=== PATIENT | female | born 1965 | race American Indian/Alaskan Native ===

== ENCOUNTER 2017-05-12 14:34 | Emergency (ER) | payer MEDICAID ==
[2017-05-12 14:43] VITALS: BP 148/65; PULSE 72; RESP 20; TEMP 99.3; O2SAT 98
--- NOTE | 2017-05-12 15:39 | ED PDOC ---
HPI: Female Pain Time Seen by Provider: 05/12/17 15:05 Chief Complaint (Nursing): Dizziness/Lightheaded Chief Complaint (Provider): Dizziness associated with vaginal bleeding History Per: Patient History/Exam Limitations: no limitations Current Symptoms Are (Timing): Still Present Associated Symptoms: denies: Chest Pain Additional Complaint(s): Titus Pizarro, a 52 year old female, with a past medical history of hypertension and anemia presents to the ED with dizziness associated with vaginal bleeding . The patient reports that her last menstrual period was 2 weeks ago and it was heavy. Patient states that she started bleeding again today but it was light. Denies chest pain, loss of consciousness. Abnormal Vaginal Bleeding: Yes Last Menstral Period: 2 weeks ago Past Medical History Reviewed: Historical Data, Nursing Documentation, Vital Signs Vital Signs: Last Vital Signs Temp 99.3 F 05/12/17 14:41 Pulse 72 05/12/17 14:41 Resp 20 05/12/17 14:41 BP 148/65 05/12/17 14:41 Pulse Ox 98 05/12/17 14:41 - Medical History PMH: Anemia (has needed transfusions), HTN Denies: Asthma, Chronic Kidney Disease - Surgical History Surgical History: (x3) - Family History Family History: States: Unknown Family Hx - Home Medications Home Medications: Ambulatory Orders Medication Instructions Recorded Carvedilol [Coreg] 6.25 mg PO BID #0 tab 02/20/16 Ferrous Sulfate [Feosol] 325 mg PO TID #0 tab 02/20/16 Ibuprofen [Motrin] 600 mg PO TID #30 tab 09/01/16 Ondansetron HCl [Zofran] 4 mg PO TID #60 ml 09/01/16 Oseltamivir [Tamiflu Cap] 75 mg PO BID #5 cap 09/01/16 Meclizine [Meclizine*] 25 mg PO Q8 #15 tab 05/12/17 - Allergies Allergies/Adverse Reactions: Allergies Allergy/AdvReac Type Severity Reaction Status Date / Time No Known Allergies Allergy Verified 03/03/16 17:26 Review of Systems Cardiovascular: Negative for: Chest Pain Genitourinary Female: Positive for: Vaginal Bleeding Neurological: Positive for: Dizziness Physical Exam - Reviewed Nursing Documentation Reviewed: Yes Vital Signs Reviewed: Yes - Physical Exam Appears: Positive for: Non-toxic, No Acute Distress Head Exam: Positive for: ATRAUMATIC, NORMAL INSPECTION, NORMOCEPHALIC Skin: Positive for: Normal Color, Warm, Dry. Negative for: Rash Eye Exam: Positive for: Normal appearance, EOMI, PERRL. Negative for: Nystagmus ENT: Positive for: Normal ENT Inspection Neck: Positive for: Normal, Painless ROM, Supple Cardiovascular/Chest: Positive for: Regular Rate, Rhythm, Chest Non Tender. Negative for: Tachycardia Respiratory: Positive for: Normal Breath Sounds. Negative for: Rales, Rhonchi, Wheezing, Respiratory Distress Gastrointestinal/Abdominal: Positive for: Normal Exam, Bowel Sounds, Soft. Negative for: Tenderness, Mass, Guarding, Rebound Back: Positive for: Normal Inspection. Negative for: L CVA Tenderness, R CVA Tenderness Neurologic/Psych: Positive for: Alert, Oriented, Gait. Negative for: Motor/ Sensory Deficits - Laboratory Results Result Diagrams: 05/12/17 16:06 05/12/17 16:15 - ECG O2 Sat by Pulse Oximetry: 98 (RA) Pulse Ox Interpretation: Normal Medical Decision Making Medical Decision Makin Initial Impression: 52 year old female presenting with dizziness associated with vaginal bleeding Initial Plan: * CMP * Upreg * Udip * CBC * Reevaluation Scribe~Attestation Documented by Aliyah Almazan acting as a scribe for Wade Doe MD Provider~Attestation All medical record entries made by the Scribe were at my direction and personally dictated by me. I have reviewed the chart and agree that the record accurately reflects my personal performance of the history, physical exam, medical decision making, and the department course for this patient. I have also personally directed, reviewed, and agree with the discharge instructions and disposition. Disposition - Clinical Impression Clinical Impression: Dizziness - Patient ED Disposition Is Patient to be Admitted: No Counseled Patient/Family Regarding: Studies Performed, Diagnosis, Need For Followup, Rx Given - Disposition Referrals: [facility] [Outside] Disposition: Routine/Home Disposition Time: 17:19 Condition: FAIR Prescriptions: Meclizine [Meclizine*] 25 mg PO Q8 #15 tab Instructions: Dizziness (ED) Forms: [facility] ([place]ian)
[2017-05-12 16:39] LABS: BASO % 0.2 % (0.0-2.0); EOS # 0.1 K/uL (0.0-0.7); EOS % 2.6 % (0.0-4.0); LYMPH # 1.2 K/uL (1.0-4.3); LYMPH % 24.6 % (20.0-40.0); MEAN CELL VOLUME 82.3 fl (81.0-99.0); MEAN CORPUSCULAR HEMOGLOBIN 25.4 pg (27.0-31.0); MEAN CORPUSCULAR HGB CONC 30.9 g/dL (33.0-37.0); MEAN PLATELET VOLUME 9.9 fl (7.2-11.7); MONO # 0.5 K/uL (0.0-0.8); MONO % 9.9 % (0.0-10.0); NEUT # 3.1 K/uL (1.8-7.0); NEUT % 62.7 % (50.0-75.0); NRBC % 0.1 % (0.0-0.0); RED CELL DISTRIBUTION WIDTH 20.2 % (11.5-14.5)
[2017-05-12 16:56] LABS: ALB/GLOB RATIO 1.2 (1.0-2.1); ALKALINE PHOSPHATASE 105 U/L (38-126); ALT/SGPT 24 U/L (9-52); AST/SGOT 18 U/L (14-36); BILIRUBIN,TOTAL 0.3 mg/dl (0.2-1.3); BLOOD UREA NITROGEN 13 mg/dl (7-17); CALCIUM 8.6 mg/dL (8.4-10.2); CARBON DIOXIDE 27 mmol/L (22-30); CHLORIDE 103 mmol/L (98-107); GFR AFRICAN-AMERICAN > 60; GLUCOSE,RANDOM 78 mg/dL (65-105); POTASSIUM 4.3 MMOL/L (3.6-5.0); SODIUM 142 mmol/l (132-148); TOTAL PROTEIN 7.6 G/DL (6.3-8.2)
--- NOTE | 2017-05-13 13:24 | CARD ---
APPROVED REPORT EKG Measurement Heart [id number] <Conclusion> Normal sinus rhythm Normal ECG
== END 2017-05-12 17:38 | disposition home or self-care (01) ==
LOC: H.ER 14:34
DX: N93.9 Abnormal uterine and vaginal bleeding, unspecified (principal); I10 Essential (primary) hypertension

== ENCOUNTER 2017-08-21 12:51 | Emergency (ER) | payer MEDICAID ==
[2017-08-21 13:13] VITALS: BP 153/70; PULSE 84; RESP 16; TEMP 100.9; O2SAT 99
--- NOTE | 2017-08-21 13:43 | ED PDOC ---
HPI: Abdomen Time Seen by Provider: 08/21/17 13:25 Chief Complaint (Nursing): Abdominal Pain Chief Complaint (Provider): Abdominal pain History Per: Patient History/Exam Limitations: no limitations Onset/Duration Of Symptoms: Days (2) Outside of [place] travel?: No Additional Complaint(s): Pt reports lower abdominal cramping X 2 days, menses started today, had small BM today, feels a "knot" in R abdomen. Denies fever, nausea, vomiting, constipation, diarrhea, dysuria, hematuria. Abnormal Vaginal Bleeding: No Last Menstral Period: Now Past Medical History Reviewed: Nursing Documentation, Vital Signs Vital Signs: Last Vital Signs Temp 100.9 F H 08/21/17 13:11 Pulse 84 08/21/17 13:11 Resp 16 08/21/17 13:11 BP 153/70 H 08/21/17 13:11 Pulse Ox 99 08/21/17 13:11 - Medical History PMH: Anemia (has needed transfusions), HTN Denies: Asthma, Chronic Kidney Disease - Surgical History Surgical History: (x3) - Family History Family History: States: Unknown Family Hx - Home Medications Home Medications: Ambulatory Orders Medication Instructions Recorded Carvedilol [Coreg] 6.25 mg PO BID #0 tab 02/20/16 Ferrous Sulfate [Feosol] 325 mg PO TID #0 tab 02/20/16 Ibuprofen [Motrin] 600 mg PO TID #30 tab 09/01/16 Ondansetron HCl [Zofran] 4 mg PO TID #60 ml 09/01/16 Oseltamivir [Tamiflu Cap] 75 mg PO BID #5 cap 09/01/16 Meclizine [Meclizine*] 25 mg PO Q8 #15 tab 05/12/17 - Allergies Allergies/Adverse Reactions: Allergies Allergy/AdvReac Type Severity Reaction Status Date / Time No Known Allergies Allergy Verified 03/03/16 17:26 Review of Systems Constitutional: Negative for: Fever, Chills Cardiovascular: Negative for: Chest Pain, Palpitations Respiratory: Negative for: Cough, Shortness of Breath Gastrointestinal: Positive for: Abdominal Pain, Constipation. Negative for: Nausea, Vomiting, Diarrhea, Hematochezia, Hematemesis Genitourinary Female: Positive for: Vaginal Bleeding. Negative for: Dysuria, Hematuria, Vaginal Discharge Musculoskeletal: Negative for: Back Pain Skin: Negative for: Rash, Lesions Neurological: Negative for: Headache, Dizziness Physical Exam - Reviewed Nursing Documentation Reviewed: Yes Vital Signs Reviewed: Yes - Physical Exam Appears: Positive for: Uncomfortable Skin: Positive for: Normal Color, Warm, Dry Eye Exam: Positive for: Normal appearance, EOMI, PERRL Cardiovascular/Chest: Positive for: Regular Rate, Rhythm Respiratory: Positive for: Normal Breath Sounds. Negative for: Rales, Rhonchi, Wheezing Gastrointestinal/Abdominal: Positive for: Bowel Sounds, Soft, Tenderness ( Generalized), Other (Morbidly obese). 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
[2017-08-21] MEDS ORDERED: Sodium Chloride 0.9% 1,000 ML IV STA (13:44)
[2017-08-21 14:19] LABS: VENOUS BLOOD GAS BASE EXCESS 4.9 mmol/L (0.0-2.0); VENOUS BLOOD GAS PCO2 45 mmHg (40-60); VENOUS BLOOD GAS PO2 20 mm/Hg (30-55); VENOUS BLOOD PH 7.43 (7.32-7.43)
[2017-08-21 14:20] LABS: BASO # 0.1 K/uL (0.0-0.2); BASO % 0.7 % (0.0-2.0); EOS % 0.2 % (0.0-4.0); HEMOGLOBIN 9.9 g/dL (12.0-16.0); LYMPH # 1.1 K/uL (1.0-4.3); LYMPH % 10.9 % (20.0-40.0); MEAN CELL VOLUME 75.2 fl (81.0-99.0); MEAN CORPUSCULAR HEMOGLOBIN 24.1 pg (27.0-31.0); MEAN CORPUSCULAR HGB CONC 32.1 g/dL (33.0-37.0); MEAN PLATELET VOLUME 9.2 fl (7.2-11.7); MONO % 9.2 % (0.0-10.0); NEUT # 8.2 K/uL (1.8-7.0); NRBC % 0.1 % (0.0-0.0); RBC 4.12 Mil/uL (3.80-5.20); RED CELL DISTRIBUTION WIDTH 18.3 % (11.5-14.5); WHITE BLOOD COUNT 10.4 K/uL (4.8-10.8)
[2017-08-21 14:44] LABS: INR 1.3 (0.9-1.2); PARTIAL THROMBOPLASTIN TIME 35.4 Seconds (25.6-37.1); PROTHROMBIN TIME 14.1 Seconds (9.8-13.1)
[2017-08-21 14:58] LABS: ALB/GLOB RATIO 0.9 (1.0-2.1); ALBUMIN 4.3 g/dL (3.5-5.0); ALT/SGPT 25 U/L (9-52); AST/SGOT 30 U/L (14-36); BLOOD UREA NITROGEN 10 mg/dl (7-17); CALCIUM 8.6 mg/dL (8.4-10.2); GFR AFRICAN-AMERICAN > 60; GFR NON-AFRICAN AMERICAN > 60
[2017-08-21 15:16] LABS: SQUAMOUS EPITHIAL 2 /hpf (0-5); URINE BILIRUBIN NEGATIVE (NEGATIVE); URINE BLOOD LARGE (NEGATIVE); URINE CLARITY CLOUDY (Clear); URINE COLOR YELLOW (YELLOW); URINE GLUCOSE (UA) NEG (Normal); URINE LEUKOCYTE ESTERASE NEG Leu/uL (Negative); URINE NITRATE NEGATIVE (NEGATIVE); URINE PROTEIN 100 mg/dL (NEGATIVE); URINE UROBILINOGEN 0.2-1.0 mg/dL (0.2-1.0)
[2017-08-21] MEDS ORDERED: Sodium Chloride 0.9% 50 ML IV ONE (15:30)
[2017-08-21] MEDS ORDERED: Iohexol 300 100 ML IJ ONE (15:30)
--- NOTE | 2017-08-21 16:26 | CT ---
PROCEDURE: CT Abdomen and Pelvis with contrast HISTORY: Gen abd pain COMPARISON: CT pelvis without contrast performed 02/07/16 TECHNIQUE: Contrast dose: 95 cc Omnipaque 300 Radiation dose: Total exam DLP = 1033.26 mGy-cm. This CT exam was performed using one or more of the following dose reduction techniques: Automated exposure control, adjustment of the mA and/or kV according to patient size, and/or use of iterative reconstruction technique. FINDINGS: LOWER THORAX: No visible consolidation, pleural effusion, or pneumothorax. LIVER: Unremarkable. GALLBLADDER AND BILE DUCTS: Unremarkable. PANCREAS: 7.6 x 7.9 cm left upper quadrant cystic mass, at the level of the pancreatic tail. SPLEEN: Splenomegaly. 14 mm probable splenule. ADRENALS: Unremarkable. KIDNEYS AND URETERS: The kidneys enhance symmetrically. No hydronephrosis or obstructing calculus identified. VASCULATURE: No aortic aneurysm. BOWEL: Stomach is nondistended. Lack of oral contrast limits evaluation for bowel pathology. Bowel loops appear within normal limits of caliber without evidence of obstruction. APPENDIX: The appendix appears within normal limits of caliber. No secondary signs of acute appendicitis. PERITONEUM: No significant free fluid. No definite free air. LYMPH NODES: No bulky adenopathy identified. BLADDER: Unremarkable. REPRODUCTIVE: Enlarged heterogeneous spleen is uterus consistent with fibroid uterus. Coarse calcifications likely related to degenerating fibroid. 8.6 x 9.5 cm hypodense region within the uterus possibly related to fibroid as well. Recommend further evaluation with pelvic ultrasound or outpatient MRI if indicated. BONES: Mild degenerative changes. OTHER FINDINGS: None. IMPRESSION: Large cystic appearing mass at the pancreatic tail. Splenomegaly. Enlarged heterogeneous spleen is uterus consistent with fibroid uterus. Coarse calcifications likely related to degenerating fibroid. 8.6 x 9.5 cm hypodense region within the uterus possibly related to fibroid as well. Recommend further evaluation with pelvic ultrasound or outpatient MRI if indicated. Additional incidental findings as above.
--- NOTE | 2017-08-21 16:47 | ED PDOC ---
- Laboratory Results Result Diagrams: 08/21/17 14:15 08/21/17 14:15 - ECG O2 Sat by Pulse Oximetry: 99 (RA) Pulse Ox Interpretation: Normal Medical Decision Making Medical Decision Making: Time: 16:[address] Lalita Malcolm. Patient with abdominal pain. Pending CT scan, reassessment, and final ER disposition. Patient Name / ID : ORIN TRINH / [id number] Exam Date : 08/21/2017 15:31:00 ( Approved ) Study Comment : Sex / Age : F / 52Y Creator : Anyi Garrido MD Dictator : Anyi Garrido MD Hose Tender : Sanitor : Anyi Garrido MD Approver2 : Report Date : 08/21/2017 16:24:39 My Comment : PROCEDURE: CT Abdomen and Pelvis with contrast HISTORY: Gen abd pain COMPARISON: CT pelvis without contrast performed 02/07/16 TECHNIQUE: Contrast dose: 95 cc Omnipaque 300 Radiation dose: Total exam DLP = 1033.26 mGy-cm. This CT exam was performed using one or more of the following dose reduction techniques: Automated exposure control, adjustment of the mA and/or kV according to patient size, and/or use of iterative reconstruction technique. FINDINGS: LOWER THORAX: No visible consolidation, pleural effusion, or pneumothorax. LIVER: Unremarkable. GALLBLADDER AND BILE DUCTS: Unremarkable. PANCREAS: 7.6 x 7.9 cm left upper quadrant cystic mass, at the level of the pancreatic tail. SPLEEN: Splenomegaly. 14 mm probable splenule. ADRENALS: Unremarkable. KIDNEYS AND URETERS: The kidneys enhance symmetrically. No hydronephrosis or obstructing calculus identified. VASCULATURE: No aortic aneurysm. BOWEL: Stomach is nondistended. Lack of oral contrast limits evaluation for bowel pathology. Bowel loops appear within normal limits of caliber without evidence of obstruction. APPENDIX: The appendix appears within normal limits of caliber. No secondary signs of acute appendicitis. PERITONEUM: No significant free fluid. No definite free air. LYMPH NODES: No bulky adenopathy identified. BLADDER: Unremarkable. REPRODUCTIVE: Enlarged heterogeneous spleen is uterus consistent with fibroid uterus. Coarse calcifications likely related to degenerating fibroid. 8.6 x 9.5 cm hypodense region within the uterus possibly related to fibroid as well. Recommend further evaluation with pelvic ultrasound or outpatient MRI if indicated. BONES: Mild degenerative changes. OTHER FINDINGS: None. IMPRESSION: Large cystic appearing mass at the pancreatic tail. Splenomegaly. Enlarged heterogeneous spleen is uterus consistent with fibroid uterus. Coarse calcifications likely related to degenerating fibroid. 8.6 x 9.5 cm hypodense region within the uterus possibly related to fibroid as well. Recommend further evaluation with pelvic ultrasound or outpatient MRI if indicated. Additional incidental findings as above. DW patient at length findings and need for follow up. Many of the findings are known before and she has to continue follow up with specialists for further management. All questions and concerns asked and answered. Eager to eat and go home. Scribe Attestation: Documented by Nevin Jaime, acting as a scribe for Manuela Chester MD Provider Scribe Attestation: All medical record entries made by the Scribe were at my direction and personally dictated by me. I have reviewed the chart and agree that the record accurately reflects my personal performance of the history, physical exam, medical decision making, and the department course for this patient. I have also personally directed, reviewed, and agree with the discharge instructions and disposition. Disposition - Clinical Impression Clinical Impression: Fibroid, Anemia, Abdominal cyst - POA Present On Arrival: None - Disposition Referrals: [facility] [Medical Doctor] - Ace Conn MD [Staff Provider] - (INTERVENTIONAL RADIOLOGY) Katy Isabel MD [Staff Provider] - (GYNECOLOGY) [facility] [Outside] (FOR ASSISTANCE WITH SCHEDULING FOLLOW UP APPOINTMENTS) Disposition: Routine/Home Disposition Time: 17:21 Condition: STABLE Additional Instructions: YOU HAVE UTERINE FIBROIDS. PLEASE FOLLOW UP WITH [facility] BY THE END OF THE WEEK FOR FURTHER MANAGEMENT YOU HAVE A CHRONIC CYST IN YOUR ABDOMEN. PLEASE FOLLOW UP WITH INTERVENTIONAL RADIOLOGY FOR POSSIBLE ASPIRATION OF THIS CYST FOR FURTHER EVALUATION. YOU MAY NEED TO SEE YOUR DOCTOR FIRST FOR A REFERRAL. IF YOU HAVE ANY DIFFICULTY SCHEDULING APPOINTMENTS, PLEASE CALL [facility]. Prescriptions: Ferrous Sulfate [Feosol] 325 mg PO TID #30 tab Ibuprofen [Motrin Tab] 600 mg PO Q8 PRN #60 tab PRN Reason: Pain, Moderate (4-7) traMADol [Ultram] 50 mg PO TID PRN #15 tab PRN Reason: SEVERE PAIN ONLY Instructions: Uterine Fibroids (ED), Anemia (ED), Abdominal Pain (ED)
[2017-08-21 17:47] LABS: AMYLASE 48 U/L (30-110); LIPASE < 10 U/L (23-300)
== END 2017-08-21 18:10 | disposition home or self-care (01) ==
LOC: H.ER 12:51
DX: D25.9 Leiomyoma of uterus, unspecified (principal); D64.9 Anemia, unspecified; I10 Essential (primary) hypertension
CPT/HCPCS: 74177; 80053; 81003; 81025; 82150; 82803; 83615; 83690; 85025; 85610; 85730; 87040; 99283; J7040; Q9967

== ENCOUNTER 2018-04-20 15:09 | Emergency (ER) | payer MEDICAID, OTHER ==
[2018-04-20 15:18] VITALS: BP 147/80; PULSE 78; RESP 19; TEMP 98.9; O2SAT 98
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
== END 2018-04-20 16:07 | disposition home or self-care (01) ==
LOC: H.ER 15:09
DX: S39.012A Strain of muscle, fascia and tendon of lower back, initial encounter (principal); Y04.0XXA Assault by unarmed brawl or fight, initial encounter; Y92.410 Unspecified street and highway as the place of occurrence of the external cause; I10 Essential (primary) hypertension

== ENCOUNTER 2018-11-06 11:37 | Emergency (ER) | payer MEDICAID ==
[2018-11-06 11:41] VITALS: BMI 48.0
[2018-11-06 11:43] VITALS: TEMP 98.4
--- NOTE | 2018-11-06 13:18 | ED PDOC ---
HPI: Influenza Time Seen by Provider: 11/06/18 12:14 Chief Complaint: Cough, Cold, Congestion Past Medical History Vital Signs: Last Vital Signs Temp 98.4 F 11/06/18 11:43 Pulse 72 11/06/18 11:43 Resp 20 11/06/18 11:43 BP 152/79 H 11/06/18 11:43 Pulse Ox 98 11/06/18 11:43 - Medical History PMH: Anemia (has needed transfusions), HTN Denies: Asthma, Chronic Kidney Disease - Surgical History Surgical History: (x3) - Family History Family History: States: Unknown Family Hx - Home Medications Home Medications: Ambulatory Orders Medication Instructions Recorded Carvedilol [Coreg] 6.25 mg PO BID #0 tab 02/20/16 Ferrous Sulfate [Feosol] 325 mg PO TID #0 tab 02/20/16 Ibuprofen [Motrin] 600 mg PO TID #30 tab 09/01/16 Ondansetron HCl [Zofran] 4 mg PO TID #60 ml 09/01/16 Meclizine [Meclizine*] 25 mg PO Q8 #15 tab 05/12/17 Ferrous Sulfate [Feosol] 325 mg PO TID #30 tab 08/21/17 Ibuprofen [Motrin Tab] 600 mg PO Q8 PRN #60 tab 08/21/17 traMADol [Ultram] 50 mg PO TID PRN #15 tab 08/21/17 Naproxen 375 mg PO Q8 PRN #9 tablet 04/20/18 - Allergies Allergies/Adverse Reactions: Allergies Allergy/AdvReac Type Severity Reaction Status Date / Time No Known Allergies Allergy Verified 03/03/16 17:26 - ECG O2 Sat by Pulse Oximetry: 98 Disposition - Disposition
--- NOTE | 2018-11-06 13:18 | RAD ---
HISTORY: cough COMPARISON: Chest x-ray performed 08/31/16 TECHNIQUE: Chest PA and lateral FINDINGS: LUNGS: Patchy infiltrate in the inferior aspect of the right upper lobe. Minimal interstitial prominence and peribronchiolar cuffing centrally. PLEURA: No significant pleural effusion identified. No definite pneumothorax . CARDIOVASCULAR: Heart size appears within normal limits.. Atherosclerotic calcifications of the aorta. OSSEOUS STRUCTURES: Degenerative changes of the spine. VISUALIZED UPPER ABDOMEN: Unremarkable. OTHER FINDINGS: None. IMPRESSION: Patchy infiltrate in the inferior aspect of the right upper lobe. Minimal interstitial prominence and peribronchiolar cuffing centrally. Study marked for PA review.
--- NOTE | 2018-11-06 13:24 | ED PDOC ---
HPI: CCC, URI, Sore Throat Time Seen by Provider: 11/06/18 12:14 Chief Complaint (Nursing): Cough, Cold, Congestion Chief Complaint (Provider): Cough History Per: Patient History/Exam Limitations: no limitations Onset/Duration Of Symptoms: Days Current Symptoms Are (Timing): Still Present Sick Contacts (Context): Family Member(s) Associated Symptoms: Sputum Additional Complaint(s): 53 year old female with history of HTN presents to the ED complaining of cough with yellow sputum since last Monday. She has sick contacts at home. Otherwise, she denies fever, shortness of breath or nausea. PMD: [place] Past Medical History Reviewed: Historical Data, Nursing Documentation, Vital Signs Vital Signs: Last Vital Signs Temp 98.4 F 11/06/18 11:43 Pulse 72 11/06/18 11:43 Resp 20 11/06/18 11:43 BP 152/79 H 11/06/18 11:43 Pulse Ox 98 11/06/18 11:43 - Medical History PMH: Anemia (has needed transfusions), HTN Denies: Asthma, Chronic Kidney Disease - Surgical History Surgical History: (x3) - Family History Family History: States: Unknown Family Hx - Social History Current smoker - smoking cessation education provided: No Alcohol: None Drugs: Denies - Home Medications Home Medications: Ambulatory Orders Medication Instructions Recorded Carvedilol [Coreg] 6.25 mg PO BID #0 tab 02/20/16 Ferrous Sulfate [Feosol] 325 mg PO TID #0 tab 02/20/16 Ibuprofen [Motrin] 600 mg PO TID #30 tab 09/01/16 Ondansetron HCl [Zofran] 4 mg PO TID #60 ml 09/01/16 Meclizine [Meclizine*] 25 mg PO Q8 #15 tab 05/12/17 Ferrous Sulfate [Feosol] 325 mg PO TID #30 tab 08/21/17 Ibuprofen [Motrin Tab] 600 mg PO Q8 PRN #60 tab 08/21/17 traMADol [Ultram] 50 mg PO TID PRN #15 tab 08/21/17 Naproxen 375 mg PO Q8 PRN #9 tablet 04/20/18 Azithromycin [Zithromax] 250 mg PO DAILY #6 tab 11/06/18 Benzonatate [Tessalon Perle] 100 mg PO Q8 #10 capsule 11/06/18 - Allergies Allergies/Adverse Reactions: Allergies Allergy/AdvReac Type Severity Reaction Status Date / Time No Known Allergies Allergy Verified 03/03/16 17:26 Review of Systems ROS Statement: Except As Marked, All Systems Reviewed And Found Negative Constitutional: Negative for: Fever Respiratory: Positive for: Cough, Sputum (yellow). Negative for: Shortness of Breath Physical Exam - Reviewed Nursing Documentation Reviewed: Yes Vital Signs Reviewed: Yes - Physical Exam Appears: Positive for: Well, Non-toxic, No Acute Distress Head Exam: Positive for: ATRAUMATIC, NORMAL INSPECTION, NORMOCEPHALIC Skin: Positive for: Normal Color, Warm, Dry Eye Exam: Positive for: EOMI, Normal appearance, PERRL ENT: Positive for: Normal ENT Inspection Neck: Positive for: Normal, Painless ROM, Supple Cardiovascular/Chest: Positive for: Regular Rate, Rhythm. Negative for: Murmur Respiratory: Positive for: Normal Breath Sounds. Negative for: Respiratory Distress Gastrointestinal/Abdominal: Positive for: Normal Exam, Soft. Negative for: Tenderness Back: Positive for: Normal Inspection Extremity: Positive for: Normal ROM. Negative for: Tenderness, Pedal Edema, Deformity Neurological/Psych: Positive for: Awake, Alert, Normal Tone, Oriented (x3) - ECG O2 Sat by Pulse Oximetry: 98 (RA) Pulse Ox Interpretation: Normal Medical Decision Making Medical Decision Making: Time: 1221 Plan: Chest two views [RAD] Reevaluation ----- Scribe Attestation: Documented by Danielito Henry, acting as a scribe Emily Doe MD Provider Scribe Attestation: All medical record entries made by the Scribe were at my direction and personally dictated by me. I have reviewed the chart and agree that the record accurately reflects my personal performance of the history, physical exam, medical decision making, and the department course for this patient. I have also personally directed, reviewed, and agree with the discharge instructions and disposition. Disposition - Clinical Impression Clinical Impression: Bronchitis - Patient ED Disposition Is Patient to be Admitted: No Counseled Patient/Family Regarding: Studies Performed, Diagnosis, Need For Followup, Rx Given - Disposition Referrals: [facility] [Outside] Disposition: Routine/Home Disposition Time: 13:30 Condition: FAIR Prescriptions: Azithromycin [Zithromax] 250 mg PO DAILY #6 tab Benzonatate [Tessalon Perle] 100 mg PO Q8 #10 capsule Instructions: Acute Bronchitis Forms: [facility] (Swedish)
[2018-11-06 13:42] VITALS: BP 147/72; PULSE 67; RESP 18; O2SAT 99
== END 2018-11-06 13:37 | disposition home or self-care (01) ==
LOC: H.ER 11:37
DX: J40 Bronchitis, not specified as acute or chronic (principal); I10 Essential (primary) hypertension